=== PATIENT | male | born 1990 | race African-American/Black ===

== ENCOUNTER 2019-12-06 01:06 | Emergency (ER) | payer OTHER ==
[~2019-12-06] VITALS: Ht 200.7 cm; Wt 131.0 kg
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
[2019-12-06] MEDS ORDERED: diazePAM 5 MG TABLET. PO ONE (02:30)
[2019-12-06] MEDS: KETOROLAC 30 MG/ML VIAL. IM ONE ×2 (02:30→03:12)
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
[2019-12-06] MEDS ORDERED: METH-38 PO (02:41)
[2019-12-06] MEDS ORDERED: NAPR-682 PO (02:41)
[2019-12-07] MEDS ORDERED: IBUP-1673 PO (00:53)
== END 2019-12-06 03:18 | disposition home or self-care (01) ==
LOC: ER 01:06
DX: S06.0X0A Concussion without loss of consciousness, initial encounter (principal); M25.561 Pain in right knee; M25.511 Pain in right shoulder; M54.2 Cervicalgia; M54.5 Low back pain; Z88.0 Allergy status to penicillin; V79.9XXA Bus occupant (driver) (passenger) injured in unspecified traffic accident, initial encounter; Y93.89 Activity, other specified; Y92.89 Other specified places as the place of occurrence of the external cause; Y99.8 Other external cause status
CPT/HCPCS: 70450; 72100; 72125; 73030; 73562; J1885; 99285-25

== ENCOUNTER 2019-12-07 00:37 | Emergency (ER) | payer OTHER ==
[~2019-12-07] VITALS: Ht 200.7 cm; Wt 131.0 kg
[2019-12-07 00:37] VITALS: BP 156/92
[~2019-12-07 00:37] MED LIST: METH-38 PO; NAPR-682 PO
[2019-12-07] MEDS ORDERED: IBUP-1673 PO (00:53)
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
[2019-12-07] MEDS ORDERED: IBUPROFEN 600 MG TABLET. PO ONE ×2 (01:00→01:03)
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
== END 2019-12-07 01:20 | disposition home or self-care (01) ==
LOC: ER 00:37
DX: M25.571 Pain in right ankle and joints of right foot (principal); R22.41 Localized swelling, mass and lump, right lower limb; Z88.0 Allergy status to penicillin; V79.69XA Unspecified bus occupant injured in collision with other motor vehicles in traffic accident, initial encounter; Y93.89 Activity, other specified; Y92.89 Other specified places as the place of occurrence of the external cause; Y99.8 Other external cause status
CPT/HCPCS: 73610; 99283